=== PATIENT | male | born 1980 ===

== ENCOUNTER 2023-12-14 13:12 | Outpatient (AMB) | payer OTHER, SELFPAY ==
--- NOTE | 2023-12-14 13:28 | HO.SPINEOV ---
Intake Intake Visit Reasons: Left sided sciatica Intake Note: Mr. Richey is here today c/o low back pain, failed pain injection. MRI done @ [place]/brought disc. Allergies No Known Allergies Allergy (Verified 12/14/23 13:30) Assessment & Plan Assessment & Plan (1) Back pain: Code(s): M54.9 - Dorsalgia, unspecified Plan Dear Dr Rausch, Thank you for referring MR Richey to our office today. He is a very nice 43-year-old gentleman who works in [employer], and doing mechanic/welder work on vehicles who has had 4-5 years of low back pain, got worse in March of 2023. There was no specific event that incited the back pain. He has been trying to work through it, but ultimately he has been out of work the last few months because the pain has been so bad. He underwent physical therapy, and injection as well as medication trials including anti-inflammatories, baclofen and oxycodone but nothing seems to be helping. There is no pain radiating down the legs. He has a MRI done at [place] showing mild degenerative disc disease and was sent today see us for an evaluation. He was previously seen by Brown Luna PA-C at Dr Devine office. He was felt not to be a surgical candidate so this is a 2nd opinion for him. PMH: History of high cholesterol but other than that he tells me he is healthy. Social hx: Smokes a few cigarettes a day, no marijuana or alcohol Medications: Baclofen and Lipitor Allergies: None Physical exam: Awake alert oriented no acute distress normal gait and strength Imaging review: Lumbar MRI done at [facility] shows very mild degenerative disc disease at L5-S1 with no evidence of nerve impingement or misalignment. Impression: 43-year-old male works in [employer] and doing mechanic/welder work presents for evaluation of acute on chronic low back pain that started last March which does not seem to have improved over time with conservative treatment. Unfortunately there is not much on his MRI to point towards a surgical option. I agree with Radha Luna assessment. The patient I discussed the fact that back pain can be elusive and that many times degenerative findings in the spine are just normal and nothing that is in need of surgical intervention. We also discussed the fact that he may need to choose an alternate career, as the amount of lifting and bending and twisting in his current occupation maybe too much for his back to handle. Thank you for allowing us to care for your patient. The total time spent with this visit with this patient was 45 minutes reviewing history, physical exam, lumbar imaging review, and implementation of treatment plan or further diagnostic testing Moy Figueroa MD,PhD [facility] Coding Level of Care Code New Pt Level 4 (59271) Diagnoses Back pain M54.9
== END 2023-12-14 13:54 | disposition home or self-care (01) ==
PROVIDERS: PCP Internal Medicine; Referring Provider Internal Medicine; Visit Provider Physician Assistant
DX: M54.9 Dorsalgia, unspecified (principal)
CPT/HCPCS: 99204

== ENCOUNTER → 2023-12-14 13:12 | Outpatient (BNVA) | payer OTHER, SELFPAY | PROVIDERS: PCP Internal Medicine; Visit Provider Physician Assistant | DX: M54.9 Dorsalgia, unspecified (principal) | CPT/HCPCS: 99202 ==